=== PATIENT | male | born 1960 ===

== ENCOUNTER 2016-11-19 10:02 | Emergency (ER) | payer OTHER ==
[2016-11-19 11:35] LABS: BASO # 0.1 K/uL (0.0-0.2); EOS # 0.1 K/uL (0.0-0.7); EOS % 1.9 % (0.0-4.0); HEMATOCRIT 45.5 % (35.0-51.0); LYMPH # 1.7 K/uL (1.0-4.3); LYMPH % 32.8 % (20.0-40.0); MEAN CELL VOLUME 88.7 fL (80.0-94.0); MEAN CORPUSCULAR HEMOGLOBIN 30.3 pg (27.0-31.0); MEAN CORPUSCULAR HGB CONC 34.2 g/dL (33.0-37.0); MEAN PLATELET VOLUME 9.4 fL (7.2-11.7); MONO # 0.3 K/uL (0.0-0.8); MONO % 6.6 % (0.0-10.0); NRBC % 0.5 % (0.0-2.0); RED CELL DISTRIBUTION WIDTH 12.8 % (11.5-14.5); WHITE BLOOD COUNT 5.1 K/uL (4.8-10.8)
--- NOTE | 2016-11-19 12:26 | C.PDOC ---
History Of Present Illness 56 year old male presents to the ED with complaints of intermittent palpitations , abdominal pain, constipation, and bloating for the past 2 years. Patient [place] had Gastritis and an esophageal ulcer. He also had a stress test and echocardiogram with normal results and notes he started feeling better and stopped going to his PMD, however the symptoms are slowly returning. Denies vomiting, fever, chills, chest pain, urinary symptoms, or any other complaints at this time. Time Seen by Provider: 11/19/16 12:20 Chief Complaint (Nursing): High Blood Pressure History Per: Patient History/Exam Limitations: no limitations Onset/Duration Of Symptoms: Days, Intermittent Episodes Current Symptoms Are (Timing): Still Present Severity: Mild Past Medical History Reviewed: Historical Data, Nursing Documentation, Vital Signs Vital Signs: Last Vital Signs Temp 98.0 F 11/19/16 13:17 Pulse 63 11/19/16 13:17 Resp 20 11/19/16 13:17 BP 139/90 11/19/16 13:17 Pulse Ox 99 11/19/16 14:16 - Medical History PMH: Gastritis Family History: States: Unknown Family Hx - Social History Hx Tobacco Use: No Hx Alcohol Use: No Hx Substance Use: No - Immunization History Hx Tetanus Toxoid Vaccination: Yes Hx Influenza Vaccination: No Hx Pneumococcal Vaccination: No Review Of Systems Except As Marked, All Systems Reviewed And Found Negative. Constitutional: Negative for: Fever, Chills Cardiovascular: Positive for: Palpitations. Negative for: Chest Pain Respiratory: Negative for: Shortness of Breath Gastrointestinal: Positive for: Abdominal Pain, Constipation. Negative for: Vomiting Genitourinary: Negative for: Dysuria, Frequency Musculoskeletal: Negative for: Back Pain Physical Exam - Physical Exam Appears: Non-toxic, No Acute Distress Skin: Normal Color, Warm, Dry Head: Atraumatic, Normacephalic Eye(s): bilateral: Normal Inspection Oral Mucosa: Moist Chest: Symmetrical, No Deformity Cardiovascular: Rhythm Regular, No Murmur Respiratory: Normal Breath Sounds, No Accessory Muscle Use, No Rales, No Rhonchi , No Wheezing Gastrointestinal/Abdominal: Soft, No Tenderness, No Distention, No Guarding, No Rebound Extremity: Normal ROM Neurological/Psych: Oriented x3, Normal Speech, Normal Cognition ED Course And Treatment - Laboratory Results Result Diagrams: 11/19/16 11:31 11/19/16 11:31 ECG: Interpreted By Me, Viewed By Me ECG Rhythm: Sinus Rhythm Interpretation Of ECG: Inverted T waves in leads III and AVL Rate From EC O2 Sat by Pulse Oximetry: 99 (Room air) Pulse Ox Interpretation: Normal Progress Note: Blood work ordered and reviewed. Rx given and patient advised to follow up with the clinic. Medical Decision Making Medical Decision Making: No indication of arrhythmia Plan dc home pcp f/u Disposition - Disposition Referrals: [facility] [Outside] Disposition: HOME/ ROUTINE Disposition Time: 13:01 Condition: GOOD Additional Instructions: Follow up in clinic Prescriptions: Polyethylene Glycol 3350 [Miralax] 17 gm PO DAILY PRN #500 g PRN Reason: Constipation Omeprazole Magnesium [Prilosec Otc] 20 mg PO BID #60 tablet. Instructions: Palpitations (ED), Constipation (ED) Print Language: QATARI - Clinical Impression Clinical Impression: Heart palpitations, Constipation - Scribe Statement The provider has reviewed the documentation as recorded by the Scribe Rogers Jung. Provider Attestation: All medical record entries made by the Scribe were at my direction and personally dictated by me. I have reviewed the chart and agree that the record accurately reflects my personal performance of the history, physical exam, medical decision making, and the department course for this patient. I have also personally directed, reviewed, and agree with the discharge instructions and disposition.
[2016-11-19 12:28] LABS: CHLORIDE 101 mmol/L (98-107); POTASSIUM 4.5 mmol/L (3.6-5.2); SODIUM 138 mmol/L (132-148)
[2016-11-19 12:30] LABS: GFR AFRICAN-AMERICAN > 60
[2016-11-19 12:31] LABS: ALB/GLOB RATIO 1.1 (1.0-2.1); ALKALINE PHOSPHATASE 54 U/L (38-126); ALT/SGPT 28 U/L (21-72); AST/SGOT 44 U/L (17-59); BLOOD UREA NITROGEN 12 mg/dL (9-20); CALCIUM 9.4 mg/dl (8.6-10.4); CARBON DIOXIDE 28 mmol/L (22-30); GLUCOSE,RANDOM 94 mg/dL (75-110); TOTAL PROTEIN 7.8 g/dL (6.3-8.3)
[2016-11-19 13:18] VITALS: BP 139/90; PULSE 63; RESP 20; TEMP 98
[2016-11-19 14:12] VITALS: O2SAT 99
--- NOTE | 2016-12-14 14:43 | CARD ---
APPROVED REPORT EKG Measurement Heart [id number] <Conclusion> Normal sinus rhythm Septal infarct, age undetermined T wave abnormality, consider inferior ischemia Abnormal ECG
== END 2016-11-19 13:17 | disposition home or self-care (01) ==
LOC: C.ER 10:02
DX: R00.2 Palpitations (principal); K59.00 Constipation, unspecified